=== PATIENT | male | born 1965 | race Caucasian/White ===

== ENCOUNTER 2017-03-05 15:20 | Emergency (ER) | payer SELFPAY ==
[2017-03-05 15:44] LABS: BASOPHIL (%) 0.5 % (0-1); EOSINOPHIL (%) 2.1 % (0-5); EOSINOPHIL COUNT 0.1 K/uL (0-0.3); HEMATOCRIT 36.1 % (38.0-50.0); HEMOGLOBIN 11.3 G/DL (12.5-16.6); IMMATURE GRANULOCYTE (%) 0.5 % (0.0-0.7); LYMPHOCYTE (%) 26.9 % (15-42); LYMPHOCYTE COUNT 1.5 K/uL (1.0-2.8); MCH 25.5 PG (29.0-34.0); MCHC 31.3 G/DL (30.0-36.0); MCV 81.3 FL (86-99); MONOCYTE (%) 10.5 % (3-12); MONOCYTE COUNT 0.6 K/uL (0-0.8); NEUTROPHIL (%) 59.5 % (45-76); NEUTROPHIL COUNT 3.4 K/uL (1.8-6.4); PLATELET COUNT 191 K/uL (156-360); RBC DIS.WIDTH-CV 17.2 % (11.8-14.6); RBC DIS.WIDTH-SD 50.6 % (39-53); RED BLOOD COUNT 4.44 M/uL (4.00-5.50); WHITE BLOOD COUNT 5.7 K/uL (4.1-10.2)
[2017-03-05 15:54] LABS: AMYLASE 78 IU/L (1-118); CHLORIDE 108 mEq/L (99-109); POTASSIUM 3.6 mEq/L (3.7-5.4); SODIUM 142 mEq/L (136-147)
[2017-03-05 15:56] LABS: GLUCOSE 85 mg/dL (70-99)
[2017-03-05 15:59] LABS: SERUM ETHYL ALCOHOL 148 mg/dL
[2017-03-05 16:00] LABS: CREATININE 1.2 mg/dL (0.6-1.3)
[2017-03-05 16:01] LABS: GFR ESTIMATE (CALCULATED) > 59 mL/min/ (58.99-99999); UREA NITROGEN (BUN) 8 mg/dL (9-23)
[2017-03-05 16:03] LABS: LIPASE 97 U/L (1.0-51.0)
[2017-03-05] MEDS ORDERED: FLEXERIL10 MG PO (16:49)
[2017-03-05] MEDS ORDERED: NAPROSYN500 MG PO (16:49)
[2017-03-05 17:15] VITALS: BP 134/92
== END 2017-03-05 18:37 | disposition home or self-care (01) ==
LOC: EME 15:20 → TRA 15:20 → EME 18:37
PROVIDERS: Emergency Medicine
DX: S16.1XXA Strain of muscle, fascia and tendon at neck level, initial encounter (principal); R20.0 Anesthesia of skin; R20.2 Paresthesia of skin; W20.8XXA Other cause of strike by thrown, projected or falling object, initial encounter; Y93.89 Activity, other specified; Z21 Asymptomatic human immunodeficiency virus [HIV] infection status; Z98.1 Arthrodesis status; Z88.2 Allergy status to sulfonamides
CPT/HCPCS: 70450; 72125; 72128; 72131; 80048; 81003; 82150; 83690; 85025; 86850; 86900; 86901; G0480